=== PATIENT | male | born 1955 | race Caucasian/White ===

== ENCOUNTER → 2016-09-19 | Outpatient (CLI) | payer OTHER ==
--- NOTE | 2016-09-19 13:24 | DX ---
"PA and Lateral Chest - September 19, 2016 Indication: Acute pharyngitis. Comparison: None Findings: Lungs have diffuse peribronchial thickening and linear opacities throughout the right and l eft lungs extending to the pleura. Fullness in the left hilum may represent an enlarged lymph node or superimposed vasculature. No airspace consolidation or effusion. The heart size is normal. Impression: 1. Query atypical pneumonia such as viral pneumonitis. 2. No pneumonia or effusion. 3. Equivocal left hilar lymphadenopathy versus superimposed vascular structures. Recommend follow-up radiograph in 4-6 weeks once acute phase illness has resolved. A follow-up required test result has been communicated via the [employer] | Critical Result syst em on 09/19/2016 13:21, Message ID [id number]."
== END ==
LOC: CIMAGING 12:23
PROVIDERS: ATTEND Internal Medicine
DX: J02.9 Acute pharyngitis, unspecified (principal)
CPT/HCPCS: 71020-PO

== ENCOUNTER → 2016-10-30 | Outpatient (CLI) | payer OTHER | LOC: CIMAGING 11:15 | PROVIDERS: ATTEND Internal Medicine | DX: R59.0 Localized enlarged lymph nodes (principal) | CPT/HCPCS: 71020-PO ==